=== PATIENT | female | born 1970 | race Caucasian/White ===

== ENCOUNTER 2020-12-14 19:52 | Emergency (ER) | payer BC, OTHER ==
[~2020-12-14] VITALS: Ht 160 cm; Wt 118.5 kg
[2020-12-14] MEDS ORDERED: ONDANSETRON 4MG/2ML VIAL IV ONE (21:10)
[2020-12-14 21:42] LABS: BASO # 0.1 10^3/uL (0.0-0.2); BASO % 0.2 % (0.0-1.0); EOS % 0.1 % (0.0-3.0); HEMATOCRIT 28.2 % (36.0-47.0); HEMOGLOBIN 9.6 g/dl (12.0-15.5); LYMPH # 3.5 10^3/uL (1.5-5.0); LYMPH % 12.6 % (24.0-44.0); MEAN CORPUSCULAR HEMOGLOBIN 31.5 pg (27.0-33.0); MEAN CORPUSCULAR VOLUME 92.5 fl (80.0-96.0); MONO # 2.1 10^3/uL (0.0-0.8); MONO % 7.4 % (2.0-8.0); NEUTROPHILS % 79.1 % (36.0-66.0); PLATELET COUNT, AUTOMATED 293 10^3/uL (150-450); RED BLOOD COUNT 3.05 10^6/uL (4.00-5.40); WHITE BLOOD COUNT 27.8 10^3/uL (4.0-10.0)
[2020-12-14] MEDS ORDERED: ISOVUE-370 76% 100ML VIAL As Ordered ONE (21:44)
[2020-12-14] MEDS ORDERED: LOVE1INJ SC (21:47)
[2020-12-14] MEDS ORDERED: ESSETAB4 PO (21:48)
[2020-12-14 21:54] LABS: INR 1.16; PROTHROMBIN TIME 15.2 SECONDS (12.7-14.5)
[2020-12-14 21:55] LABS: PARTIAL THROMBOPLASTIN TIME 24.7 SECONDS (25.9-37.0)
[2020-12-14 22:06] LABS: ALBUMIN 3.2 GM/DL (3.2-5.2); ALT/SGPT 33 U/L (12-78); BILIRUBIN,DIRECT < 0.1 MG/DL (0.0-0.2); BILIRUBIN,TOTAL 0.4 MG/DL (0.2-1.0); LIPASE 65 U/L (73-393); TOTAL PROTEIN 5.8 GM/DL (6.4-8.2)
[2020-12-14 22:17] LABS: RSV AMPLIFICATION NEGATIVE (NEGATIVE)
[2020-12-14] MEDS ORDERED: PROMETHAZINE INJ 25 MG/ML VIAL (J2550) IV ONE (22:50)
[2020-12-14] MEDS ORDERED: MORPHINE 4 MG/ML 1ML VIAL/SYRINGE (J2270) IV PRN (22:50)
--- NOTE | 2020-12-14 23:26 | REPVR ---
PROCEDURE INFORMATION: Exam: CT Chest With Contrast; Diagnostic Exam date and time: 12/14/2020 10:35 PM Age: 50 years old Clinical indication: Chest wall pain; Prior surgery; Surgery date: Post-operative (0-2 days); Surgery type: Gastric bypass; Additional info: Gastric bypass 12/13, hematemesis, chest pain TECHNIQUE: Imaging protocol: Diagnostic computed tomography of the chest with contrast. Radiation optimization: All CT scans at this facility use at least one of these dose optimization techniques: automated exposure control; mA and/or kV adjustment per patient size (includes targeted exams where dose is matched to clinical indication); or iterative reconstruction. Contrast material: ISOVUE 370; Contrast volume: 100 ml; Contrast route: INTRAVENOUS (IV); COMPARISON: No relevant prior studies available. FINDINGS: Lungs: The lungs appear clear. Pleural spaces: There is no evidence of pneumothorax or pleural effusion. Heart: The heart is top-normal in size and there is no pericardial effusion. Pulmonary arteries: There is opacification of the pulmonary arteries with no evidence of pulmonary embolus. Aorta: There is opacification of the aorta which appears intact. Lymph nodes: Unremarkable. No enlarged lymph nodes. Stomach and bowel: The patient has had a gastric bypass. There is a created gastric pouch proximally which is grossly distended with secretions and measuring 6 cm. The secretions reflux into the entire esophagus which is distended and there is an air-fluid level. Multiple surgical clips can be identified and it appears that a loop of small bowel extends into the created gastric pouch. This has the appearance of a intussusception. It is of concern that there may be obstruction because of loops of small bowel extending through the created lumen and anastomosis. Bones/joints: Unremarkable. No acute fracture. Soft tissues: Unremarkable. IMPRESSION: There is a created proximal gastric pouch within anastomosis to multiple loops of small bowel. This small gastric pouch is distended to 6 cm and filled with secretions with severe reflux of secretions and distend the entire length of esophagus. Loops of small bowel extend through the created lumen into the created gastric pouch. This creates a filling defect and possible high-grade obstruction. The appearance is suggestive of a intussusception. Electronically signed by: Curly Kim On 12/14/2020 23:25:40 PM
--- NOTE | 2020-12-14 23:43 | REPVR ---
PROCEDURE INFORMATION: Exam: CT Abdomen And Pelvis With Contrast Exam date and time: 12/14/2020 10:35 PM Age: 50 years old Clinical indication: Other: Hematemesis; Abdominal pain; Generalized; Prior surgery; Surgery date: Post-operative (0-2 days); Surgery type: Gastric bypass; Additional info: Gastric bypass 12/13, hematemesis, chest pain TECHNIQUE: Imaging protocol: Computed tomography of the abdomen and pelvis with contrast. Radiation optimization: All CT scans at this facility use at least one of these dose optimization techniques: automated exposure control; mA and/or kV adjustment per patient size (includes targeted exams where dose is matched to clinical indication); or iterative reconstruction. Contrast material: ISOVUE 370; Contrast volume: 100 ml; Contrast route: INTRAVENOUS (IV); Other technique: < Start Dictation> COMPARISON: No relevant prior studies available. FINDINGS: Liver: Normal appearing liver. Gallbladder and bile ducts: Normal gallbladder. Pancreas: Normal appearing pancreas. Spleen: Normal spleen. Adrenal glands: Normal adrenal glands. Kidneys and ureters: There is enhancement of both kidneys. Stomach and bowel: The patient has had a gastric bypass. There is a created gastric pouch proximally which is grossly distended with secretions and measuring 6 cm. The secretions reflux into the entire esophagus which is distended and there is an air-fluid level. Multiple surgical clips can be identified and it appears that a loop of small bowel extends into the created gastric pouch. This has the appearance of an intussusception. It is of concern that there may be obstruction because of loops of small bowel extending through the created lumen and anastomosis. This could also be a volvulus at the anastomosis as well causing the high-grade obstruction. There is a swirled appearance to the surgical clips at the anastomosis. The cecum is in the right lower quadrant and there is no evidence of inflammation. Almost no secretions are entering the remainder of the small bowel. Intraperitoneal space: There is no significant free fluid within the abdomen or pelvis. Vasculature: There is opacification of the SMV and the SMA. Lymph nodes: There is no evidence of lymphadenopathy. Urinary bladder: Normal urinary bladder. Reproductive: Normal uterus. There are 2 cysts of the right ovary measuring 3.8 cm x 2.5 cm and also round 2 cm cyst. Bones/joints: Unremarkable. No acute fracture. Soft tissues: Bubbles of air are noted at the umbilicus from recent surgery. There are multiple bubbles of air deep within the subcutaneous layer and along the muscular layer right side of the abdomen. IMPRESSION: There is a created proximal gastric pouch with anastomosis to multiple loops of small bowel. This small gastric pouch is distended to 6 cm and filled with secretions with severe reflux of secretions and distention of the entire length of esophagus. Loops of small bowel extend through the created lumen into the created gastric pouch. This creates a filling defect and possible high-grade obstruction. The appearance is suggestive of a intussusception. Intussusception of loops of small bowel into the gastric pouch with secretions creating a soft tissue obstruction. This could also be a volvulus at the surgical anastomosis since there is a swirled appearance of the surgical clips at the anastomosis as well. Findings were discussed with JUAN GRULLON at 12/14/2020 11:42 PM EDT. Electronically signed by: Curly Kim On 12/14/2020 23:43:03 PM
[2020-12-15] MEDS ORDERED: PIPERACILLIN/TAZOBACTAM SOD 3.375 GM in D5W MINI-BAG PLUS 50 ML IV ONE (00:20)
[2020-12-15 02:40] LABS: BASO # 0.1 10^3/uL (0.0-0.2); BASO % 0.2 % (0.0-1.0); HEMOGLOBIN 8.3 g/dl (12.0-15.5); LYMPH # 3.4 10^3/uL (1.5-5.0); LYMPH % 16.4 % (24.0-44.0); MEAN CORPUSCULAR HGB CONC 33.2 g/dl (32.0-36.5); MEAN CORPUSCULAR VOLUME 93.3 fl (80.0-96.0); MONO # 1.2 10^3/uL (0.0-0.8); MONO % 5.5 % (2.0-8.0); NEUTROPHILS # 16.2 10^3/uL (1.5-8.5); NEUTROPHILS % 77.5 % (36.0-66.0); PLATELET COUNT, AUTOMATED 262 10^3/uL (150-450); RED BLOOD COUNT 2.68 10^6/uL (4.00-5.40); WHITE BLOOD COUNT 20.9 10^3/uL (4.0-10.0)
[2020-12-15 04:22] VITALS: BP 113/56
== END 2020-12-15 04:33 | disposition short-term general hospital (02) ==
LOC: M ED 19:52
DX: K91.840 Postprocedural hemorrhage of a digestive system organ or structure following a digestive system procedure (principal); K56.1 Intussusception; K56.609 Unspecified intestinal obstruction, unspecified as to partial versus complete obstruction; E66.9 Obesity, unspecified; Z79.899 Other long term (current) drug therapy
CPT/HCPCS: 36430; 71260; 74177; 80047; 80076; 83605; 83690; 85025; 85610; 85730; 86850; 86900; 86901; 86927; 87631; 93041; 96365; 96375; 99285; J2405; J2543; Q9967